=== PATIENT | female | born 1990 ===

== ENCOUNTER 2017-02-16 02:22 | Emergency (ER) | payer OTHER ==
[2017-02-16 02:33] VITALS: BP 132/86; PULSE 87; RESP 16; TEMP 99; O2SAT 99
[2017-02-16] MEDS ORDERED: Sodium Chloride 0.9% 1,000 ML IV STA (03:01)
--- NOTE | 2017-02-16 03:03 | ED PDOC ---
HPI: Abdomen Time Seen by Provider: 02/16/17 02:34 Chief Complaint (Nursing): Abdominal Pain Chief Complaint (Provider): abdominal pain History Per: Patient History/Exam Limitations: no limitations Onset/Duration Of Symptoms: Days (4) Current Symptoms Are (Timing): Still Present Location Of Pain/Discomfort: Epigastric Associated Symptoms: Nausea, Diarrhea Additional History Per: Patient Additional Complaint(s): 27 y/o female history of pancreatitis presents with worsening epigastric abdominal pain x 4 days. Patient notes pain to radiate to back. Associated diarrhea, nausea with one vomiting episode. Denies fever, chest pain, shortness of breath, palpitations, recent travel, urinary symptoms. Past Medical History Reviewed: Historical Data, Nursing Documentation, Vital Signs Vital Signs: Last Vital Signs Temp 99 F 02/16/17 02:31 Pulse 87 02/16/17 02:31 Resp 16 02/16/17 02:31 BP 132/86 02/16/17 02:31 Pulse Ox 99 02/16/17 03:03 - Medical History PMH: Pancreatitis - Surgical History Surgical History: Tonsillectomy Other surgeries: gastric bypass - Family History Family History: States: Unknown Family Hx - Immunization History Hx Tetanus Toxoid Vaccination: (up to date - given last year) - Home Medications Home Medications: Ambulatory Orders Medication Instructions Recorded Ondansetron ODT [Zofran ODT] 4 mg PO Q6H PRN #16 odt 04/05/15 Esomeprazole Magnesium [Nexium] 20 mg PO QAM #30 ecc 10/30/15 Ondansetron ODT [Zofran ODT] 4 mg PO Q6 PRN #16 odt 10/30/15 traMADol [Ultram] 50 mg PO Q6 PRN #16 tab 02/12/16 - Allergies Allergies/Adverse Reactions: Allergies Allergy/AdvReac Type Severity Reaction Status Date / Time No Known Allergies Allergy Verified 10/29/15 21:31 Review of Systems ROS Statement: Except As Marked, All Systems Reviewed And Found Negative Gastrointestinal: Positive for: Nausea, Abdominal Pain, Diarrhea Musculoskeletal: Positive for: Back Pain Physical Exam - Reviewed Nursing Documentation Reviewed: Yes Vital Signs Reviewed: Yes - Physical Exam Appears: Positive for: Well, Non-toxic, No Acute Distress Head Exam: Positive for: ATRAUMATIC, NORMAL INSPECTION, NORMOCEPHALIC Skin: Positive for: Normal Color Eye Exam: Positive for: Normal appearance ENT: Positive for: Normal ENT Inspection Cardiovascular/Chest: Positive for: Regular Rate, Rhythm Respiratory: Positive for: Normal Breath Sounds Gastrointestinal/Abdominal: Positive for: Bowel Sounds, Soft, Tenderness ( epigastric) Back: Positive for: Normal Inspection Extremity: Positive for: Normal ROM Neurologic/Psych: Positive for: Alert, Oriented - Laboratory Results Result Diagrams: 02/16/17 03:20 02/16/17 03:20 - ECG O2 Sat by Pulse Oximetry: 99 - Progress ED Course And Treament: labs, urine, IV fluids, IV pepcid On re-eval, patient states she is feeling better. Patient aware of anemia, on iron supplement since surgery. patient educated on findings, discharged with rx pepcid, macrobid. Follow up PMD/GI. Diet modification. Return to ED for worsening/concerning symptoms. Disposition - Clinical Impression Clinical Impression: Gastritis, UTI (urinary tract infection) - Patient ED Disposition Is Patient to be Admitted: No Counseled Patient/Family Regarding: Studies Performed, Diagnosis, Need For Followup, Rx Given - Disposition Disposition: Routine/Home Disposition Time: 06:00 Condition: IMPROVED
[2017-02-16 03:26] LABS: BASO # 0.1 K/uL (0.0-0.2); BASO % 1.1 % (0.0-2.0); EOS # 0.2 K/uL (0.0-0.7); EOS % 2.1 % (0.0-4.0); HEMATOCRIT 27.2 % (34.0-47.0); LYMPH # 3.9 K/uL (1.0-4.3); LYMPH % 35.9 % (20.0-40.0); MEAN CELL VOLUME 66.2 fl (81.0-99.0); MEAN CORPUSCULAR HEMOGLOBIN 20.3 pg (27.0-31.0); MEAN CORPUSCULAR HGB CONC 30.7 g/dL (33.0-37.0); MEAN PLATELET VOLUME 7.1 fl (7.2-11.7); MONO # 0.7 K/uL (0.0-0.8); MONO % 6.5 % (0.0-10.0); NEUT # 5.8 K/uL (1.8-7.0); NEUT % 54.4 % (50.0-75.0); RED CELL DISTRIBUTION WIDTH 17.9 % (11.5-14.5); WHITE BLOOD COUNT 10.7 K/uL (4.8-10.8)
[2017-02-16 03:31] LABS: BLOOD UREA NITROGEN 12 mg/dl (7-17); GFR AFRICAN-AMERICAN > 60; GLUCOSE,RANDOM 94 mg/dL (65-105); POTASSIUM 3.4 MMOL/L (3.6-5.0); SODIUM 140 mmol/l (132-148)
[2017-02-16 03:32] LABS: ALB/GLOB RATIO 1.4 (1.0-2.1); ALKALINE PHOSPHATASE 94 U/L (38-126); ALT/SGPT 42 U/L (9-52); AST/SGOT 27 U/L (14-36); BILIRUBIN,TOTAL 0.3 mg/dl (0.2-1.3); CALCIUM 8.5 mg/dL (8.4-10.2); CARBON DIOXIDE 26 mmol/L (22-30); CHLORIDE 104 mmol/L (98-107); LIPASE 66 U/L (23-300); TOTAL PROTEIN 6.8 G/DL (6.3-8.2)
[2017-02-16 07:26] LABS: RBC URINE 4 /hpf (0-3); URINE BACTERIA RARE (<OCC); URINE BILIRUBIN NEGATIVE (NEGATIVE); URINE BLOOD NEGATIVE (NEGATIVE); URINE COLOR YELLOW (YELLOW); URINE GLUCOSE (UA) NEG (Normal); URINE KETONE NEGATIVE (NEGATIVE); URINE LEUKOCYTE ESTERASE TRACE Leu/uL (Negative); URINE PROTEIN NEGATIVE (NEGATIVE); URINE UROBILINOGEN 0.2-1.0 mg/dL (0.2-1.0); WBC URINE 16 /hpf (0-5)
== END 2017-02-16 05:45 | disposition home or self-care (01) ==
LOC: H.ER 02:22
DX: N39.0 Urinary tract infection, site not specified (principal); K29.70 Gastritis, unspecified, without bleeding; D64.9 Anemia, unspecified
CPT/HCPCS: 80053; 81003; 81025; 83690; 85025; 87086; 96374; 99283; J7040

== ENCOUNTER 2017-11-01 20:34 | Emergency (ER) | payer SELFPAY ==
--- NOTE | 2017-11-01 22:08 | ED PDOC ---
HPI: SOB/CHF/COPD Time Seen by Provider: 11/01/17 21:09 Chief Complaint (Nursing): Shortness Of Breath Chief Complaint (Provider): Shortness Of Breath History Per: Patient History/Exam Limitations: no limitations Onset/Duration Of Symptoms: Hrs (x 6 ) Current Symptoms Are (Timing): Still Present Quality: "Pain" Additional Complaint(s): 27 year old female (ega 12 weeks) presents to the ED complaining of shortness of breath associated with right upper back pain radiating into her chest. Patient states she was sitting at her desk when she developed sudden onset of shortness of breath. Describes pain as if she is unable to take full breath. Denies vaginal bleeding, abdominal pain, history of DVT or PE, hemoptysis and leg pain. PMD: Dr. Bar Biggs Past Medical History Reviewed: Historical Data, Nursing Documentation, Vital Signs Vital Signs: Last Vital Signs Temp 98.2 F 11/01/17 23:38 Pulse 77 11/02/17 01:03 Resp 18 11/01/17 23:38 BP 126/76 11/01/17 23:38 Pulse Ox 99 11/02/17 01:03 - Medical History PMH: Anemia, Pancreatitis - Surgical History Surgical History: Tonsillectomy - Family History Family History: States: Unknown Family Hx - Immunization History Hx Tetanus Toxoid Vaccination: (up to date - given last year) - Home Medications Home Medications: Ambulatory Orders Medication Instructions Recorded Ondansetron ODT [Zofran ODT] 4 mg PO Q6H PRN #16 odt 04/05/15 Esomeprazole Magnesium [Nexium] 20 mg PO QAM #30 ecc 10/30/15 Ondansetron ODT [Zofran ODT] 4 mg PO Q6 PRN #16 odt 10/30/15 traMADol [Ultram] 50 mg PO Q6 PRN #16 tab 02/12/16 Nitrofurantoin Macrocrystals 100 mg PO BID #14 cap 11/01/17 [Macrobid] - Allergies Allergies/Adverse Reactions: Allergies Allergy/AdvReac Type Severity Reaction Status Date / Time No Known Allergies Allergy Verified 10/29/15 21:31 Review of Systems ROS Statement: Except As Marked, All Systems Reviewed And Found Negative Respiratory: Positive for: Shortness of Breath Musculoskeletal: Positive for: Back Pain (that radiates to her chest) Physical Exam - Reviewed Nursing Documentation Reviewed: Yes Vital Signs Reviewed: Yes - Physical Exam Appears: Positive for: Non-toxic, No Acute Distress Head Exam: Positive for: ATRAUMATIC, NORMAL INSPECTION, NORMOCEPHALIC Skin: Positive for: Normal Color, Warm, DRY Eye Exam: Positive for: EOMI, Normal appearance, PERRL ENT: Positive for: Normal ENT Inspection Neck: Positive for: Normal, Painless ROM Cardiovascular/Chest: Positive for: Regular Rate, Rhythm. Negative for: Murmur Respiratory: Positive for: Normal Breath Sounds (speaking in full sentences). Negative for: Respiratory Distress Gastrointestinal/Abdominal: Positive for: Normal Exam, Soft. Negative for: Tenderness Extremity: Positive for: Normal ROM. Negative for: Deformity Neurologic/Psych: Positive for: Alert, Oriented (x 3). Negative for: Motor/ Sensory Deficits - Laboratory Results Result Diagrams: 11/01/17 22:00 11/01/17 22:00 Urine POC: Positive - ECG ECG: Positive for: Interpreted By Me ECG Rhythm: Positive for: Sinus Rhythm. Negative for: ST/T Changes Rate: 77 O2 Sat by Pulse Oximetry: 99 (RA) Pulse Ox Interpretation: Normal - Progress ED Course And Treament: Case discussed with Dr. Obrien who recommends bloodwork and CT if patient is willing to accept risk. A long discussion with patient weighing risk and benefits of CT took place. Patient agrees to CT as PE must be r/o. Medical Decision Making Medical Decision Making: Time; 21:42 Initial Plan: --Blood type and screen --Angio Chest PE protocol CT --EKG --Urine preg --CBC --PTT --PT/INR --UA Pt. changed her mind about obtaining CTA chest to r/o PE. Refused CTA chest. Informed of risk of not determining etiology of dyspnea. Pt. accepts risks to her and her fetus. States she will return to ED if symptoms worsen. She prefers to f/u with Dr. Jacques ([facility]) tomorrow. Encouraged to obtain CTA to r/o PE but pt. still refused. Pt. states she will sign out AMA and accept risk of and /or miscarriage. Scribe Attestation: Documented by Casie Lan, acting as a scribe for Yoav Vega PA-C Provider Scribe Attestation: All medical record entries made by the Scribe were at my direction and personally dictated by me. I have reviewed the chart and agree that the record accurately reflects my personal performance of the history, physical exam, medical decision making, and the department course for this patient. I have also personally directed, reviewed, and agree with the discharge instructions and disposition. Disposition - Clinical Impression Clinical Impression: UTI (urinary tract infection), Dyspnea, Left against medical advice - Patient ED Disposition Is Patient to be Admitted: No - Disposition Disposition: Routine/Home Disposition Time: 23:38 Condition: FAIR Prescriptions: Nitrofurantoin Macrocrystals [Macrobid] 100 mg PO BID #14 cap Instructions: Urinary Tract Infection, Adult (DC), Shortness of Breath (Dyspnea ), Leaving Against Medical Advice Forms: [employer] (Angolan) Print Language: TAJIK
[2017-11-01 22:09] LABS: BASO # 0.1 K/uL (0.0-0.2); BASO % 0.8 % (0.0-2.0); EOS # 0.2 K/uL (0.0-0.7); EOS % 1.8 % (0.0-4.0); HEMOGLOBIN 10.9 g/dL (12.0-16.0); LYMPH # 3.2 K/uL (1.0-4.3); LYMPH % 31.9 % (20.0-40.0); MEAN CELL VOLUME 77.7 fl (81.0-99.0); MEAN CORPUSCULAR HEMOGLOBIN 25.4 pg (27.0-31.0); MEAN CORPUSCULAR HGB CONC 32.6 g/dL (33.0-37.0); MEAN PLATELET VOLUME 7.4 fl (7.2-11.7); MONO # 0.6 K/uL (0.0-0.8); MONO % 6.5 % (0.0-10.0); NEUT # 5.8 K/uL (1.8-7.0); RBC 4.28 Mil/uL (3.80-5.20); RED CELL DISTRIBUTION WIDTH 24.1 % (11.5-14.5); WHITE BLOOD COUNT 9.9 K/uL (4.8-10.8)
[2017-11-01 22:21] LABS: ALB/GLOB RATIO 1.2 (1.0-2.1); ALBUMIN 3.9 g/dL (3.5-5.0); ALT/SGPT 27 U/L (9-52); AST/SGOT 26 U/L (14-36); BLOOD UREA NITROGEN 12 mg/dl (7-17); GFR AFRICAN-AMERICAN > 60; GFR NON-AFRICAN AMERICAN > 60
[2017-11-01 22:22] LABS: SQUAMOUS EPITHIAL 4 /hpf (0-5); URINE BACTERIA RARE (<OCC); URINE BILIRUBIN NEGATIVE (NEGATIVE); URINE BLOOD NEGATIVE (NEGATIVE); URINE CLARITY SLIGHTY-CLOUDY (Clear); URINE COLOR YELLOW (YELLOW); URINE GLUCOSE (UA) NEG (Normal); URINE LEUKOCYTE ESTERASE TRACE Leu/uL (Negative); URINE PROTEIN NEGATIVE (NEGATIVE); URINE UROBILINOGEN 0.2-1.0 mg/dL (0.2-1.0)
[2017-11-01 23:40] VITALS: BP 126/76; RESP 18; TEMP 98.2; O2SAT 99
[2017-11-02 01:03] VITALS: PULSE 77
--- NOTE | 2017-11-02 10:27 | CARD ---
APPROVED REPORT EKG Measurement Heart [id number] <Conclusion> Normal sinus rhythm Normal ECG
== END 2017-11-01 23:42 | disposition home or self-care (01) ==
LOC: H.ER 20:34
DX: N39.0 Urinary tract infection, site not specified (principal); R06.00 Dyspnea, unspecified; J44.9 Chronic obstructive pulmonary disease, unspecified; O99.511 Diseases of the respiratory system complicating pregnancy, first trimester; Z3A.12 12 weeks gestation of pregnancy